=== PATIENT | female | born 1965 | race Caucasian/White ===

== ENCOUNTER 2017-06-13 06:58 | Day surgery (SDC) | payer BC ==
[2017-06-13] MEDS ORDERED: Sodium Chloride 0.9% 10 ML Syringe FLUSH PRN (07:00)
[2017-06-13] MEDS ORDERED: Lactated Ringers 1,000 ML IV SCH (07:00)
[2017-06-13] MEDS ORDERED: Lidocaine 1%/Sod Bicarbonate in NS 8.4% 1 ML Syringe IV PRN (07:00)
[2017-06-13] MEDS ORDERED: Lidocaine 1% 4 ML ONE (07:18)
[2017-06-13] MEDS ORDERED: Ondansetron 4 MG/2 ML SDV ONE (07:18)
[2017-06-13] MEDS ORDERED: fentaNYL 100 MCG/2 ML SDV ONE (07:18)
[2017-06-13] MEDS ORDERED: Propofol 200 MG/20 ML SDV ONE (07:18)
--- NOTE | 2017-06-13 07:44 | PCM.PREANE ---
Preanesthetic Assessment - Procedure Proposed Procedure: Colonoscopy - Anesthesia/Transfusion/Family Hx Anesthesia History: Prior Anesthesia Without Reaction Family History of Anesthesia Reaction: No Transfusion History: No Prior Transfusion(s) - Review of Systems General: No Symptoms Pulmonary: No Symptoms Cardiovascular: No Symptoms Gastrointestinal: No Symptoms Neurological: No Symptoms Other: Reports: Thyroid Problems, Depression, Anxiety - Physical Assessment NPO Status Date: 06/12/17 NPO Status Time: 19:00 Pulse: 84 O2 Sat by Pulse Oximetry: 96 Respiratory Rate: 16 Blood Pressure: 140/62 Temperature: 36.7 C Weight: 76.7 kg ASA Class: 2 Mental Status: Alert & Oriented x3 Airway Class: Mallampati = 1 Dentition: Reports: Normal Dentition Thyro-Mental Finger Breadths: 3 Mouth Opening Finger Breadths: 3 ROM/Head Extension: Full Lungs: Clear to Auscultation, Normal Respiratory Effort Cardiovascular: Regular Rate, Regular Rhythm - Allergies Allergies/Adverse Reactions: Allergies Allergy/AdvReac Type Severity Reaction Status Date / Time cephalexin Allergy Cannot Verified 06/12/17 14:27 Remember Penicillins Allergy Cannot Verified 06/12/17 14:27 Remember - Acknowledgements Anesthesia Type Planned: MAC Pt an Appropriate Candidate for the Planned Anesthesia: Yes Alternatives and Risks of Anesthesia Discussed w Pt/Guardian: Yes Pt/Guardian Understands and Agrees with Anesthesia Plan: Yes PreAnesthesia Questionnaire HEENT History: Reports: Impaired Vision, Other (See Below) Other HEENT History: wears glasses Cardiovascular History: Reports: Hypertension, Other (See Below) Other Cardiovascular History: mild aortic valve regurgitation Respiratory History: Reports: None Gastrointestinal History: Reports: Other (See Below) Other Gastrointestinal History: anal skin tag E/M ENGINEER History: Reports: None Musculoskeletal History: Reports: None Neurological History: Reports: None Psychiatric History: Reports: Anxiety, Depression Endocrine/Metabolic History: Reports: Hypothyroidism, Obesity/BMI 30+ Hematologic History: Reports: Anemia Immunologic History: Reports: None Oncologic (Cancer) History: Reports: None Dermatologic History: Reports: None - Past Surgical History Head Surgeries/Procedures: Reports: None Respiratory Surgical History: Reports: None Female Surgical History: Reports: Section, Tubal Ligation Male Surgical History: Reports: None Endocrine Surgical History: Reports: None Neurological Surgical History: Reports: None Musculoskeletal Surgical History: Reports: None Oncologic Surgical History: Reports: None Dermatological Surgical History: Reports: None - SUBSTANCE USE Smoking Status *Q: Never Smoker Recreational Drug Use History: No - HOME MEDS Home Medications: Home Meds Aspirin [Children's Aspirin] 81 mg PO DAILY 06/12/17 [History] Calcium Carbonate/Vitamin D3 [Caltrate 600 + D Soft Chew Tab] 1 tab PO DAILY [History] ClonazePAM [KlonoPIN] 2 mg PO BEDTIME 06/12/17 [History] Doxylamine Succinate [Unisom] 50 mg PO BEDTIME PRN 06/12/17 [History] LORazepam [LORazepam] 0.5 mg PO DAILY PRN 06/12/17 [History] Levonorgestrel-Ethin Estradiol [Falmina-28 Tablet] 1 tab PO DAILY 06/12/17 [ History] Levothyroxine [Levothyroxine] 75 mcg PO DAILY 06/12/17 [History] Metoprolol Succinate [Metoprolol Succinate] 75 mg PO DAILY 06/12/17 [History] Multivitamin [Daily Richard] 1 tab PO DAILY 06/12/17 [History] Phentermine HCl 37.5 mg PO DAILY 06/12/17 [History] - CURRENT (IN HOUSE) MEDS Current Meds: Current Medications Lactated Ringer's (Ringers, Lactated) 1,000 mls @ 125 mls/hr IV ASDIRECTED OSCAR Stop: 06/13/17 23:00 Lidocaine/Sodium Bicarbonate (Buffered Lidocaine 1% In Ns 8.4%) 0.25 ml IV ONETIME PRN PRN Reason: Prior to IV Start Stop: 06/13/17 18:00 Sodium Chloride (Saline Flush) 10 ml FLUSH ASDIRECTED PRN PRN Reason: Keep Vein Open Stop: 06/13/17 18:00 Discontinued Medications Fentanyl (Sublimaze) Confirm Administered Dose 100 mcg .ROUTE .STK-MED ONE Stop: 06/13/17 07:19 Lidocaine HCl (Xylocaine-Mpf 1%) Confirm Administered Dose 4 mls @ as directed .ROUTE .STK-MED ONE Stop: 06/13/17 07:19 Ondansetron HCl (Zofran) Confirm Administered Dose 4 mg .ROUTE .STK-MED ONE Stop: 06/13/17 07:19 Propofol (Diprivan 20 Ml) Confirm Administered Dose 400 mg .ROUTE .STK-MED ONE Stop: 06/13/17 07:19
--- NOTE | 2017-06-13 08:29 | PCM.OPNOTE ---
- General Post-Op/Procedure Note Date of Surgery/Procedure: 06/13/17 Operative Procedure(s): Colonoscopy with cecal biopsy Findings: 1. External anal tag with external hemorrhoids uncomplicated 2. Posterior anal fissure 3. AVM of the sigmoid 4. Internal hemorrhoids uncomplicated Pre Op Diagnosis: Screening colonoscopy Post-Op Diagnosis: 1. External anal tag with external hemorrhoids uncomplicated. 2. Posterior anal fissure. 3. AVM of the sigmoid. 4. Internal hemorrhoids uncomplicated Anesthesia Technique: MAC, Moderate Sedation Primary Surgeon: Tong Snyder Pathology: Cecal biopsy EBL in mLs: 0 Complications: None Condition: Good Free Text/Narrative:: After adequate IV sedation and analgesia was obtained with monitoring the patient was placed on her left side. Perianal inspection revealed a posterior anal fissure with an anterior anal tag and mild external hemorrhoids. Digital rectal examination appreciated internal hemorrhoids. The uterus was prominent and firm possibly because of a fibroid. A lubricated colonoscope was inserted into the rectum and advanced to the cecum without difficulty. Although there was no cecal edema or loss of mucosal integrity I took a random biopsy for histologic evaluation in an area that had patchy mucosal features which may have represented patches of lymphocytes. The right colon transverse and descending colons were otherwise endoscopically normal with no mass lesions or inflammatory changes. The sigmoid had 2 small AVMs. The rectum in the retroflexed view revealed the mild internal hemorrhoids. Air was removed as I finished the procedure which she tolerated well. Photographs were taken for the patient and for the medical record.
--- NOTE | 2017-06-13 08:37 | PCM48HPAN ---
Post Anesthesia Note - EVALUATION WITHIN 48HRS OF ANESTHETIC Vital Signs in Normal Range: Yes Patient Participated in Evaluation: Yes Respiratory Function Stable: Yes Airway Patent: Yes Cardiovascular Function Stable: Yes Hydration Status Stable: Yes Pain Control Satisfactory: Yes Nausea and Vomiting Control Satisfactory: Yes Mental Status Recovered: Yes
== END 2017-06-13 09:08 | disposition home or self-care (01) ==
LOC: JD.SDS 06:58
PROVIDERS: ATTEND Surgery
DX: Z12.11 Encounter for screening for malignant neoplasm of colon (principal); K64.4 Residual hemorrhoidal skin tags; K60.2 Anal fissure, unspecified; K55.20 Angiodysplasia of colon without hemorrhage; K64.8 Other hemorrhoids; F41.9 Anxiety disorder, unspecified; F32.9 Major depressive disorder, single episode, unspecified; I10 Essential (primary) hypertension; E03.9 Hypothyroidism, unspecified; G47.00 Insomnia, unspecified; I35.1 Nonrheumatic aortic (valve) insufficiency; E66.9 Obesity, unspecified; Z88.1 Allergy status to other antibiotic agents; Z88.0 Allergy status to penicillin; Z79.82 Long term (current) use of aspirin; Z79.899 Other long term (current) drug therapy; Z98.51 Tubal ligation status; Z80.0 Family history of malignant neoplasm of digestive organs; Z68.30 Body mass index [BMI] 30.0-30.9, adult
CPT/HCPCS: 45380; J2405; J3010; J7120; 00812; J2704

== ENCOUNTER 2022-05-25 10:11 | Emergency (ER) | payer BC ==
[2022-05-25] MEDS ORDERED: Dextrose 5%-0.9% NaCl 1,000 ML IV SCH (10:30)
[2022-05-25] MEDS ORDERED: Sodium Chloride 0.9% 10 ML Syringe FLUSH PRN (11:06)
[2022-05-25] MEDS ORDERED: Iopamidol 755 Mg/ML 100 ML Bottle IVPUSH ONE (11:06)
[2022-05-25] MEDS ORDERED: Sodium Chloride 0.9% 100 ML IV SCH (11:15)
[2022-05-25 11:24] LABS: ESTIMATED GFR 76 mL/min (>60)
[2022-05-25] MEDS ORDERED: Aspirin 81 MG Tab.Chew PO ONE (13:18)
[2022-05-25] MEDS ORDERED: Clopidogrel 75 MG Tab PO ONE (13:19)
== END 2022-05-25 13:52 | disposition home or self-care (01) ==
LOC: JD.ED 10:11
DX: I63.511 Cerebral infarction due to unspecified occlusion or stenosis of right middle cerebral artery (principal); I44.7 Left bundle-branch block, unspecified; I10 Essential (primary) hypertension; E03.9 Hypothyroidism, unspecified; E66.9 Obesity, unspecified; Z88.1 Allergy status to other antibiotic agents; Z88.0 Allergy status to penicillin; Z79.82 Long term (current) use of aspirin; Z79.02 Long term (current) use of antithrombotics/antiplatelets; Z79.899 Other long term (current) drug therapy
CPT/HCPCS: 36415; 70450; 70496; 70498; 71045; 80053; 80307; 82947; 83735; 83880; 84443; 84484; 85025; 85379; 85610; 85652; 85730; 86140; 93005; 96360; 96361; 99285; A9270; J3490; J7042; Q9967